=== PATIENT | male | born 1945 | race Caucasian/White ===

== ENCOUNTER 2020-05-19 11:01 | Outpatient (CLI) | payer MEDICARE, OTHER ==
--- NOTE | 2020-05-20 07:03 | MRI ---
MRI BRAIN NONCONTRAST: DATE: 05/19/2020 HISTORY: 74-year-old male with memory loss FINDINGS: The ventricles are normal in size and configuration. There is no major intra-axial signal abnormality , restricted diffusion, midline shift or any other mass effect, recent intra-axial hemorrhage, or extra-axial fluid collection. IMPRESSION: Normal
== END 2020-05-19 11:02 | disposition home or self-care (01) ==
LOC: BICMRI 11:01
PROVIDERS: ATTEND Psychiatry & Neurology Neurology
DX: R41.3 Other amnesia (principal)
CPT/HCPCS: 70551